=== PATIENT | male | born 1985 | race African-American/Black ===

== ENCOUNTER 2021-10-03 10:44 | Emergency (ER) | payer OTHER ==
[~2021-10-03] VITALS: Ht 172.7 cm; Wt 88.0 kg
[2021-10-03 10:50] VITALS: BP 156/104
[2021-10-03] MEDS ORDERED: CLOT113C TP (10:58)
== END 2021-10-03 11:08 | disposition home or self-care (01) ==
LOC: ER 10:44
DX: B35.4 Tinea corporis (principal)
CPT/HCPCS: 99282